=== PATIENT | male | born 1960 | race Two or more races ===

== ENCOUNTER 2018-03-21 18:00 | Inpatient (IN) | payer BC ==
[2018-03-21] MEDS ORDERED: NACL 0.9% 3 ML SYG IV (18:30)
[2018-03-21] MEDS ORDERED: DOCUSATE SODIUM 100 MG CAP PO (18:30)
[2018-03-21] MEDS: CEFTRIAXONE 1 GM/50 ML (PMX) 50 ML IVPB (19:03)
[2018-03-21] MEDS ORDERED: VANCOMYCIN IV PER PHARMACY XX (20:30)
[2018-03-21] MEDS: DOCUSATE SODIUM 100 MG CAP PO (21:00)
[2018-03-22] MEDS: VANCOMYCIN 1 GM 250 ML IVPB ×2 (01:45→13:54)
[2018-03-22] MEDS: PANTOPRAZOLE (EC) 40 MG TAB PO (06:13)
[2018-03-22 06:22] LABS: WHITE BLOOD COUNT 5.2 10^3/ul (4.8-10.8)
[2018-03-22 06:22] LABS: ADD MAN DIFF? NO; BASOPHILS % 0.6 % (0.0-2.0); EOSINOPHILS # 0.3 10^3/ul (0.0-0.5); EOSINOPHILS % 5.2 % (0.0-7.0); HEMATOCRIT 37.4 % (42.0-52.0); LYMPHOCYTES # 1.6 10^3/ul (0.8-2.9); LYMPHOCYTES % 31.6 % (15.0-51.0); MEAN CORPUSCULAR HEMOGLOBIN 28.6 pg (29.0-33.0); MEAN CORPUSCULAR HGB CONC 32.1 g/dl (32.0-37.0); MEAN CORPUSCULAR VOLUME 89.3 fl (82.0-101.0); MEAN PLATELET VOLUME 10.2 fl (7.4-10.4); MONOCYTE # 0.7 10^3/ul (0.3-0.9); NEUTROPHIL # 2.5 10^3/ul (1.6-7.5); PLATELET COUNT 257 10^3/UL (140-415); RED BLOOD COUNT 4.19 10^6/ul (4.70-6.10); RED CELL DISTRIBUTION WIDTH 13.1 % (11.5-14.5)
[2018-03-22 06:38] LABS: HEMOGLOBIN A1C 5.7 % (0-5.9)
[2018-03-22 06:54] LABS: ALANINE AMINOTRANSFERASE 29 IU/L (13-69); ALBUMIN 3.4 g/dl (3.3-4.9); ALBUMIN/GLOBULIN RATIO 1.36; ALKALINE PHOSPHATASE 51 IU/L (42-121); ANION GAP 9 (5-13); ASPARTATE AMINO TRANSFERASE 23 IU/L (15-46); BILIRUBIN,INDIRECT 0.1 mg/dl (0-1.1); BILIRUBIN,TOTAL 0.1 mg/dl (0.2-1.3); BLOOD UREA NITROGEN 10 mg/dl (7-20); CALCIUM 8.7 mg/dl (8.4-10.2); CARBON DIOXIDE 31 mmol/L (21-31); CHLORIDE 106 mmol/L (97-110); CREATININE 0.91 mg/dl (0.61-1.24); Estimated GFR > 60 mL/min (>60); GLUCOSE 111 mg/dl (70-220); MAGNESIUM 2.2 mg/dl (1.7-2.5); PHOSPHORUS 4.4 mg/dl (2.5-4.9); SODIUM 146 mmol/L (135-144); TOTAL PROTEIN 5.9 g/dl (6.1-8.1)
[2018-03-22] MEDS: DOCUSATE SODIUM 100 MG CAP PO ×2 (09:12→21:00)
[2018-03-22] MEDS: ENOXAPARIN 40 MG/0.4 ML SYG SC (09:16)
[2018-03-22] MEDS: HYDROCODONE/APAP (5/325) TAB PO (21:00)
[2018-03-22] MEDS: ONDANSETRON 4 MG INJ IV (23:53)
[2018-03-22] MEDS: morphine 2 MG INJ IV (23:53)
[2018-03-23] MEDS: VANCOMYCIN 1 GM 250 ML IVPB ×2 (02:15→15:55)
[2018-03-23] MEDS: PANTOPRAZOLE (EC) 40 MG TAB PO (06:33)
[2018-03-23] MEDS: HYDROCODONE/APAP (5/325) TAB PO (06:33)
[2018-03-23] MEDS: DOCUSATE SODIUM 100 MG CAP PO ×2 (08:11→21:17)
[2018-03-23] MEDS: ENOXAPARIN 40 MG/0.4 ML SYG SC (08:32)
[2018-03-23] MEDS: CEFTRIAXONE 1 GM/50 ML (PMX) 50 ML IVPB (14:11)
[2018-03-23 15:35] LABS: VANCOMYCIN,TROUGH 8.6 ug/ml (10.0-20.0)
[2018-03-23] MEDS: ACETAMINOPHEN 325 MG TAB PO (21:16)
[2018-03-23] MEDS: ZOLPIDEM 5 MG TAB PO (21:17)
[2018-03-24] MEDS: VANCOMYCIN 1.5 GM in SOD CHLORIDE 0.9% 250 ML IVPB (03:53)
[2018-03-24 06:28] LABS: BLOOD UREA NITROGEN 12 mg/dl (7-20)
[2018-03-24 06:28] LABS: CREATININE 0.78 mg/dl (0.61-1.24)
[2018-03-24] MEDS: PANTOPRAZOLE (EC) 40 MG TAB PO (06:40)
[2018-03-24] MEDS: DOCUSATE SODIUM 100 MG CAP PO (09:15)
[2018-03-24] MEDS: ENOXAPARIN 40 MG/0.4 ML SYG SC (10:06)
[2018-03-24] MEDS: HYDROCODONE/APAP (5/325) TAB PO (10:50)
== END 2018-03-24 12:20 | disposition home or self-care (01) | DRG 728 ==
LOC: 2NE 18:00
DX: N45.1 Epididymitis (principal); K59.00 Constipation, unspecified; K29.70 Gastritis, unspecified, without bleeding; R14.0 Abdominal distension (gaseous); Z85.038 Personal history of other malignant neoplasm of large intestine; Z90.49 Acquired absence of other specified parts of digestive tract; Z92.21 Personal history of antineoplastic chemotherapy
CPT/HCPCS: 76870; 80053; 80202; 82565; 83036; 83735; 84100; 84520; 85025